=== PATIENT | male | born 1980 | race Hispanic/Latino ===

== ENCOUNTER 2021-09-09 19:23 | Emergency (ER) | payer OTHER ==
[~2021-09-09] VITALS: Ht 172.7 cm; Wt 75.7 kg
[2021-09-09] MEDS ORDERED: ULTRAM 50MG50 MG PO (22:41)
== END 2021-09-09 22:44 | disposition home or self-care (01) ==
LOC: ER 19:36
DX: S60.221A Contusion of right hand, initial encounter (principal); M25.531 Pain in right wrist; M25.512 Pain in left shoulder; F17.200 Nicotine dependence, unspecified, uncomplicated; Z71.6 Tobacco abuse counseling; V49.9XXA Car occupant (driver) (passenger) injured in unspecified traffic accident, initial encounter
CPT/HCPCS: 99283